=== PATIENT | male | born 1945 | race Asian ===

== ENCOUNTER 2019-05-31 19:30 | Inpatient (IN) | payer MEDICAID ==
[~2019-05-31] VITALS: Ht 167.6 cm; Wt 68.0 kg
[2019-05-31] MEDS ORDERED: IV NORMAL SALINE 1000 ML BAG IV ONE (20:00)
[2019-05-31 20:14] LABS: BASOPHILS # (AUTO) 0.1 K/uL (0.0-8.0); BASOPHILS % (AUTO) 0.9 % (0.0-2.0); EOSINOPHILS # (AUTO) 0.4 K/uL (0.0-0.7); EOSINOPHILS % (AUTO) 4.7 % (0.0-7.0); HEMATOCRIT 29.9 % (36.7-47.1); HEMOGLOBIN 10.2 g/dL (12.5-16.3); LYMPHOCYTES # (AUTO) 1.3 K/uL (20.0-40.0); LYMPHOCYTES % (AUTO) 15.5 % (20.5-51.5); MEAN CORPUSCULAR HEMOGLOBIN 26.8 uug (23.8-33.4); MEAN CORPUSCULAR HGB CONC 34 g/dL (32.5-36.3); MEAN CORPUSCULAR VOLUME 78.3 fL (73.0-96.2); MONOCYTES # (AUTO) 0.6 K/uL (2.0-10.0); MONOCYTES % (AUTO) 7.3 % (0.0-11.0); NEUTROPHILS # (AUTO) 6.2 K/uL (1.8-8.9); NEUTROPHILS % (AUTO) 71.6 % (38.5-71.5); PLATELET COUNT (AUTO) 279 K/uL (152-348); RED BLOOD CELL COUNT(AUTO) 3.82 MIL/uL (4.06-5.63); WHITE BLOOD COUNT (AUTO) 8.7 K/uL (3.6-10.2)
[2019-05-31 20:26] LABS: BILIRUBIN,DIRECT 0.2 mg/dL (0.0-0.2); BILIRUBIN,TOTAL 0.6 mg/dL (0.2-1.0); CREATININE 0.9 mg/dL (0.6-1.3); POTASSIUM 3.8 mmol/L (3.5-5.1); TOTAL PROTEIN, SERUM 7.3 g/dL (6.4-8.2)
[2019-05-31] MEDS ORDERED: AZITHROMYCIN IV 500 MG in IV DEXTROSE 5% 250 ML IV ONE (20:45)
[2019-05-31] MEDS ORDERED: CEFTRIAXONE 2 G in IV DEXTROSE 5% 100 ML IV ONE (20:45)
[2019-05-31] MEDS ORDERED: AZITHROMYCIN 500MG/ D5W 250ML IVPB **ER PYXIS ONLY IV ONE (20:46)
--- NOTE | 2019-05-31 21:01 | NUR ---
Dr. Joseph on panel call with Asael Archer DNP. Patient accepted for admission to [facility], diagnosis: pneumonia and hypertension.
[2019-05-31] MEDS ORDERED: LABETALOL HCL 100 MG/20 ML VIAL ONE (21:03)
[2019-05-31] MEDS ORDERED: LABETALOL HCL 100 MG/20 ML VIAL IV ONE (21:15)
[2019-05-31 21:25] LABS: *BILIRUBIN,URIN NEGATIVE (NEGATIVE); *BLOOD, URINE NEGATIVE (NEGATIVE); *CLARITY,URINE CLEAR (CLEAR); *COLOR,URINE YELLOW (YELLOW); *KETONES,URINE 1+ (NEGATIVE); *UROBILINOGEN,URINE 0.2 E.U./dl (NORMAL); LEUKOCYTE ESTERASE ,URINE NEGATIVE (NEGATIVE); NITRITE, URINE NEGATIVE (NEGATIVE); UGLUCOSE NEGATIVE (NEGATIVE)
[2019-05-31 21:33] LABS: RBC,URINE 0-3 /HPF (0-3); WBC,URINE NONE SEEN /HPF (0-3)
[2019-05-31] MEDS ORDERED: ONDANSETRON 4 MG/2 ML VIAL IV PRN (21:45)
[2019-05-31] MEDS ORDERED: ZOLPIDEM 5 MG TABLET PO PRN (21:45)
[2019-05-31] MEDS ORDERED: HYDROCODONE/APAP 5-325MG TABLET PO PRN (21:45)
[2019-05-31] MEDS ORDERED: Z GUARD REMEDY PASTE 57 GM TUBE TOP PRN (21:45)
--- NOTE | 2019-05-31 22:15 | NUR ---
Pt. admitted to TELE, under care of Dr. Archer Belongs List completed
[2019-05-31] MEDS: IV NS 1000 ML 1,000 ML IV PRN (22:52)
[2019-05-31 23:00] VITALS: BP 158/65
[2019-06-01] MEDS ORDERED: DEXTROSE 50% 50 ML DISP.SYRIN IV PRN (02:15)
[2019-06-01 05:00] VITALS: BP 156/65
--- NOTE | 2019-06-01 05:30 | NUR ---
Admitted Mr Hutchinson to room 306; comfortable on room air; SOB on exertion; pt has urinary urgency and would prefer to urinate standing up and use the urinal; diminished breath sounds; SR on tele; DR Phillips was called to give orders for HHN and accucheck; orders given; will endorse to next RN to follow up with home meds; needs attended; safety maintained. plan of care initiated; continue to monitor.
[2019-06-01 05:59] LABS: BASOPHILS % (AUTO) 0.5 % (0.0-2.0); EOSINOPHILS # (AUTO) 0.5 K/uL (0.0-0.7); HEMATOCRIT 29.4 % (36.7-47.1); HEMOGLOBIN 10.1 g/dL (12.5-16.3); LYMPHOCYTES # (AUTO) 0.9 K/uL (20.0-40.0); LYMPHOCYTES % (AUTO) 10.3 % (20.5-51.5); MEAN CORPUSCULAR HGB CONC 34 g/dL (32.5-36.3); MEAN CORPUSCULAR VOLUME 78.9 fL (73.0-96.2); MONOCYTES # (AUTO) 0.6 K/uL (2.0-10.0); MONOCYTES % (AUTO) 6.5 % (0.0-11.0); NEUTROPHILS # (AUTO) 6.6 K/uL (1.8-8.9); NEUTROPHILS % (AUTO) 76.7 % (38.5-71.5); PLATELET COUNT (AUTO) 248 K/uL (152-348); RED BLOOD CELL COUNT(AUTO) 3.72 MIL/uL (4.06-5.63); WHITE BLOOD COUNT (AUTO) 8.6 K/uL (3.6-10.2)
[2019-06-01 06:12] LABS: BILIRUBIN,TOTAL 0.6 mg/dL (0.2-1.0); CREATININE 0.7 mg/dL (0.6-1.3); MAGNESIUM 1.7 mg/dL (1.8-2.4); POTASSIUM 3.8 mmol/L (3.5-5.1); TOTAL PROTEIN, SERUM 6.7 g/dL (6.4-8.2)
[2019-06-01 06:15] LABS: THYROID STIMULATING HORMONE 0.627 mIU/mL (0.358-3.740)
[2019-06-01] MEDS: BLOOD SUGAR DIAGNOSTIC 1 EACH STRIP VI SCH ×4 (06:32→21:06)
[2019-06-01 08:07] VITALS: BP 191/86
--- NOTE | 2019-06-01 08:08 | NUR ---
received pt. resting in bed alert oriented x4. Pt. denies pain/ discomfort. Pt. denies sob/ difficulty breathing. IV in R forearm 20 gauge intact patent running prescribed fluids. Pt. is on tele monitor sinus rhythm. Upon checking vital signs BP elevated at 191/86 HR 93. Pt. is asymptomatic, pt. states he takes BP medications. Informed Hospitalist Gianni of elevated BP and home meds that need to be reconciled. Safety measures in place. call light within reach. will continue to monitor pt.
[2019-06-01] MEDS: INSULIN REGULAR, HUMAN 300 UNIT/3 ML VIAL SQ PRN ×3 (08:51→20:57)
[2019-06-01] MEDS ORDERED: AMLODIPINE 5 MG TABLET PO SCH (09:00)
[2019-06-01] MEDS ORDERED: LOSARTAN POTASSIUM 25 MG TABLET PO SCH (09:00)
[2019-06-01] MEDS: ASPIRIN 81 MG TAB.CHEW PO SCH (09:32)
[2019-06-01] MEDS: PANTOPRAZOLE SODIUM 40 MG TABLET.DR PO SCH (09:33)
[2019-06-01] MEDS: FLUTICASONE/VILANTEROL 1 EACH BLST.W.DEV IH SCH (10:42)
[2019-06-01] MEDS: MAGNESIUM SULFATE/D5W 100 ML IV SCH ×2 (10:43→12:06)
[2019-06-01] MEDS ORDERED: METOPROLOL TARTRATE 50 MG TABLET PO SCH (11:00)
[2019-06-01 12:09] VITALS: BP 160/65
[2019-06-01] MEDS ORDERED: DILTIAZEM HCL 30 MG TABLET PO SCH (13:00)
[2019-06-01 16:58] VITALS: BP 160/69
[2019-06-01] MEDS: AMLODIPINE 5 MG TABLET PO SCH (17:26)
--- NOTE | 2019-06-01 18:04 | NUR ---
Patient is resting comfortably in bed, A&Ox4. Pt is in room air and denies sob, no signs of respiratory distress. Pt denies any pain. Pt is on tele monitor, sinus rhythm. Last BP check was 160/69. BP medications has been taken. Total urine output was 950ml. Safety measures in place, bed in lowest position, bed alarm on, call light within reach. Will continue to monitor.
[2019-06-01 20:00] VITALS: BP_SYST 138; BP_SYST 150; BP_DIAS 60; BP_DIAS 78
--- NOTE | 2019-06-01 20:00 | NUR ---
awake,up in the bathroom to have a bowel movement. no bm noted.unable to have a bowel movement . prune juice and tea given plus milk of magnesia.coughing non productive cough,sob upon movement. vital signs stable.. up and about in the commode.verbalized very weak.
[2019-06-01] MEDS: CEFTRIAXONE 1 G in IV DEXTROSE 5% 50 ML IV SCH (20:11)
[2019-06-01] MEDS: MAGNESIUM HYDROXIDE 30 ML LIQUID UDC PO PRN (20:57)
[2019-06-01] MEDS: AZITHROMYCIN IV 250 MG in IV DEXTROSE 5% 250 ML IV SCH (22:20)
[2019-06-01] MEDS: IV NS 1000 ML 1,000 ML IV PRN (23:40)
[2019-06-02 00:26] VITALS: BP 148/72
[2019-06-02 04:48] VITALS: BP 164/79
--- NOTE | 2019-06-02 06:21 | NUR ---
up in the chair ,resting comfortably
[2019-06-02 06:24] LABS: BILIRUBIN,TOTAL 0.6 mg/dL (0.2-1.0); CREATININE 0.8 mg/dL (0.6-1.3); PHOSPHOROUS 2.8 mg/dL (2.5-4.9); POTASSIUM 3.7 mmol/L (3.5-5.1); TOTAL PROTEIN, SERUM 7.1 g/dL (6.4-8.2)
[2019-06-02 06:35] LABS: BASOPHILS % (AUTO) 0.5 % (0.0-2.0); EOSINOPHILS # (AUTO) 0.4 K/uL (0.0-0.7); EOSINOPHILS % (AUTO) 3.9 % (0.0-7.0); HEMATOCRIT 31.3 % (36.7-47.1); HEMOGLOBIN 10.6 g/dL (12.5-16.3); LYMPHOCYTES # (AUTO) 0.9 K/uL (20.0-40.0); LYMPHOCYTES % (AUTO) 9.7 % (20.5-51.5); MEAN CORPUSCULAR HEMOGLOBIN 26.5 uug (23.8-33.4); MEAN CORPUSCULAR HGB CONC 34 g/dL (32.5-36.3); MEAN CORPUSCULAR VOLUME 78.7 fL (73.0-96.2); MONOCYTES # (AUTO) 0.5 K/uL (2.0-10.0); NEUTROPHILS # (AUTO) 7.9 K/uL (1.8-8.9); NEUTROPHILS % (AUTO) 80.9 % (38.5-71.5); PLATELET COUNT (AUTO) 278 K/uL (152-348); RED BLOOD CELL COUNT(AUTO) 3.98 MIL/uL (4.06-5.63); WHITE BLOOD COUNT (AUTO) 9.7 K/uL (3.6-10.2)
[2019-06-02] MEDS: PANTOPRAZOLE SODIUM 40 MG TABLET.DR PO SCH (06:45)
[2019-06-02] MEDS: BLOOD SUGAR DIAGNOSTIC 1 EACH STRIP VI SCH ×4 (07:06→21:16)
[2019-06-02] MEDS: DILTIAZEM HCL CD 120 MG CAP.SR.24H PO SCH (07:08)
--- NOTE | 2019-06-02 08:00 | NUR ---
pt. resting in bed alert oriented x4. Pt. denies pain/ discomfort. Pt. denies sob/ difficulty breathing. IV in R forearm 20 gauge intact patent. Pt. is on tele monitor sinus rhythm. Safety measures in place. call light within reach. will continue to monitor pt.
[2019-06-02] MEDS: ASPIRIN 81 MG TAB.CHEW PO SCH (08:11)
[2019-06-02] MEDS: AMLODIPINE 5 MG TABLET PO SCH ×2 (08:12→17:30)
[2019-06-02] MEDS: FLUTICASONE/VILANTEROL 1 EACH BLST.W.DEV IH SCH (08:13)
[2019-06-02] MEDS: INSULIN REGULAR, HUMAN 300 UNIT/3 ML VIAL SQ PRN ×3 (08:15→21:23)
[2019-06-02] MEDS: LOSARTAN POTASSIUM 25 MG TABLET PO SCH ×2 (08:55→21:10)
[2019-06-02] MEDS ORDERED: LOSARTAN POTASSIUM 25 MG TABLET PO SCH ×2 (09:00)
[2019-06-02 12:00] VITALS: BP 149/65
[2019-06-02] MEDS: ALBUTEROL SULFATE 2.5 MG/3 ML NEBU NEB PRN (14:32)
[2019-06-02] MEDS: IPRATROPIUM BROMIDE 0.5 MG/2.5 ML NEBU NEB PRN (14:32)
[2019-06-02 16:00] VITALS: BP 145/65
[2019-06-02] MEDS: CEFTRIAXONE 1 G in IV DEXTROSE 5% 50 ML IV SCH (20:09)
[2019-06-02] MEDS: ACETAMINOPHEN 325 MG TABLET PO PRN (20:10)
[2019-06-02 21:07] VITALS: BP 150/63
[2019-06-02] MEDS: AZITHROMYCIN IV 250 MG in IV DEXTROSE 5% 250 ML IV SCH (21:20)
[2019-06-03 06:00] VITALS: BP 136/61
[2019-06-03 06:07] LABS: BASOPHILS % (AUTO) 0.5 % (0.0-2.0); EOSINOPHILS # (AUTO) 0.6 K/uL (0.0-0.7); HEMATOCRIT 30.3 % (36.7-47.1); HEMOGLOBIN 10.3 g/dL (12.5-16.3); LYMPHOCYTES # (AUTO) 1.1 K/uL (20.0-40.0); LYMPHOCYTES % (AUTO) 11.5 % (20.5-51.5); MEAN CORPUSCULAR HEMOGLOBIN 26.6 uug (23.8-33.4); MEAN CORPUSCULAR HGB CONC 34 g/dL (32.5-36.3); MEAN CORPUSCULAR VOLUME 77.8 fL (73.0-96.2); MONOCYTES # (AUTO) 0.6 K/uL (2.0-10.0); MONOCYTES % (AUTO) 6.1 % (0.0-11.0); NEUTROPHILS % (AUTO) 75.9 % (38.5-71.5); PLATELET COUNT (AUTO) 252 K/uL (152-348); RED BLOOD CELL COUNT(AUTO) 3.89 MIL/uL (4.06-5.63); WHITE BLOOD COUNT (AUTO) 9.2 K/uL (3.6-10.2)
[2019-06-03] MEDS: PANTOPRAZOLE SODIUM 40 MG TABLET.DR PO SCH (06:12)
[2019-06-03] MEDS: BLOOD SUGAR DIAGNOSTIC 1 EACH STRIP VI SCH ×4 (06:30→20:46)
[2019-06-03 06:31] LABS: THYROID STIMULATING HORMONE 0.719 mIU/mL (0.358-3.740)
[2019-06-03 06:42] LABS: BILIRUBIN,TOTAL 0.4 mg/dL (0.2-1.0); CREATININE 0.8 mg/dL (0.6-1.3); PHOSPHOROUS 3.6 mg/dL (2.5-4.9); POTASSIUM 3.8 mmol/L (3.5-5.1); TOTAL PROTEIN, SERUM 6.9 g/dL (6.4-8.2)
--- NOTE | 2019-06-03 07:45 | NUR ---
Received patient in bed, awake and verbally responsive. No signs of distress noted. No SOB. No complain at this time. 0600 Blood sugar is 148, will give 2 units insulin per sliding scale before breakfast. Kept clean and comfortable. kept the call light within easy reach. Will continue to monitor.
[2019-06-03] MEDS: INSULIN REGULAR, HUMAN 300 UNIT/3 ML VIAL SQ PRN ×2 (07:54→11:52)
[2019-06-03 08:00] VITALS: BP 141/53
[2019-06-03] MEDS: DILTIAZEM HCL CD 120 MG CAP.SR.24H PO SCH (08:28)
[2019-06-03] MEDS: ASPIRIN 81 MG TAB.CHEW PO SCH (08:28)
[2019-06-03] MEDS: AMLODIPINE 5 MG TABLET PO SCH ×2 (08:28→16:46)
[2019-06-03] MEDS: LOSARTAN POTASSIUM 25 MG TABLET PO SCH ×2 (08:28→21:13)
[2019-06-03] MEDS: FLUTICASONE/VILANTEROL 1 EACH BLST.W.DEV IH SCH (09:03)
--- NOTE | 2019-06-03 14:20 | NUR ---
Patient spoke with Dr. Noguera on the phone, asking if he wants to do any colonoscopy procedure, patient refused.
[2019-06-03 14:27] LABS: *OCCULT BLOOD STOOL NEGATIVE (NEGATIVE)
[2019-06-03 15:40] VITALS: BP 138/53
--- NOTE | 2019-06-03 18:30 | NUR ---
Patient in bed, awake, alert and verbally responsive. No signs of distress noted. No SON. Pain medication given as ordered for Right Chest Pain, Seen and examined by Dr. No with STAT EKG ordered. EKG resulted Normal Sinus Rhythm, Dr. No is aware. Last Blood Sugar is 122, No insulin given per sliding scale. All needs attended and met. kept clean and comfortable. Will endorse to Oncoming Nurse.
[2019-06-03] MEDS: CEFTRIAXONE 1 G in IV DEXTROSE 5% 50 ML IV SCH (20:29)
[2019-06-03 21:15] VITALS: BP 135/56
[2019-06-03] MEDS: AZITHROMYCIN IV 250 MG in IV DEXTROSE 5% 250 ML IV SCH (21:23)
[2019-06-04] VITALS: BP 128/63
[2019-06-04 05:40] VITALS: BP 132/65
[2019-06-04] MEDS: PANTOPRAZOLE SODIUM 40 MG TABLET.DR PO SCH (06:00)
[2019-06-04] MEDS: BLOOD SUGAR DIAGNOSTIC 1 EACH STRIP VI SCH ×4 (06:31→21:21)
[2019-06-04 07:41] LABS: BILIRUBIN,TOTAL 0.4 mg/dL (0.2-1.0); CREATININE 0.8 mg/dL (0.6-1.3); MAGNESIUM 1.6 mg/dL (1.8-2.4); PHOSPHOROUS 3.5 mg/dL (2.5-4.9); TOTAL PROTEIN, SERUM 6.7 g/dL (6.4-8.2)
[2019-06-04 08:09] LABS: *IMMUNOGLOBULIN G, SERUM 1105 mg/dL (603-1613); IMMUNOGLOBULIN A, SERUM 136 mg/dL (61-437); IMMUNOGLOBULIN M, SERUM 27 mg/dL (15-143)
[2019-06-04] MEDS: FLUTICASONE/VILANTEROL 1 EACH BLST.W.DEV IH SCH (08:40)
[2019-06-04] MEDS: ASPIRIN 81 MG TAB.CHEW PO SCH (08:41)
[2019-06-04] MEDS: INSULIN REGULAR, HUMAN 300 UNIT/3 ML VIAL SQ PRN ×3 (08:43→21:23)
[2019-06-04] MEDS: AMLODIPINE 5 MG TABLET PO SCH ×2 (08:43→17:08)
[2019-06-04] MEDS: LOSARTAN POTASSIUM 25 MG TABLET PO SCH ×2 (08:44→21:22)
[2019-06-04] MEDS: DILTIAZEM HCL CD 120 MG CAP.SR.24H PO SCH (08:44)
[2019-06-04] MEDS: MAGNESIUM SULFATE/D5W 100 ML IV SCH ×2 (10:14→11:12)
--- NOTE | 2019-06-04 11:30 | NUR ---
Spoke with patient in [facility]. PT is very well alert and oriented x4. Discussed code status with pt. Pt states that he doesnt want any tubes and to be intubated and put on the ventilator. Pt states that he wants to talk with his daughter first to let her know of his wants re code status. Pt states that his daughter wants him to be full code. ordered social service eval to clarify situation.
[2019-06-04 12:07] VITALS: BP 115/54
--- NOTE | 2019-06-04 12:30 | NUR ---
Received Report from radiologist Dr Bronson Cruz result of CT received.
--- NOTE | 2019-06-04 12:45 | NUR ---
Attempt to get hold of dr Arcehr by calling different floors to give result will place a call if no response.
--- NOTE | 2019-06-04 13:18 | NUR ---
Called exchange left message awaiting call back.
--- NOTE | 2019-06-04 13:45 | NUR ---
No call back from Dr hernandez placed a call to DR HOPE who ordered the CT head result given to DR hope new order received for MRI w/wo contrast of the brain.
[2019-06-04] MEDS: SOD FERRIC GLUC COMPLX/SUCROSE 125 MG in IV NORMAL SALINE 100 ML IV SCH (14:38)
--- NOTE | 2019-06-04 15:45 | NUR ---
Follow up called made to radiology department spoke with IRMA about any f/u on the stat MRI ordered. IRMA will call MRI department for follow up.
[2019-06-04 15:52] VITALS: BP 143/62
[2019-06-04 16:00] VITALS: BP 143/62
--- NOTE | 2019-06-04 16:44 | NUR ---
TEXTED DR. PATTON FOR MRI APPROVAL.
--- NOTE | 2019-06-04 18:30 | NUR ---
Pt sent for MRI test and picked up by NIKO rojas. Pt has no sob.
[2019-06-04] MEDS: CEFTRIAXONE 1 G in IV DEXTROSE 5% 50 ML IV SCH (20:00)
--- NOTE | 2019-06-04 20:55 | NUR ---
PT ARRIVED FROM [facility]. PT IN NO ACUTE DISTRESS. VITAL SIGNS WITHIN NORMAL LIMIT.. PT WANTS TO EAT ALREADY . SAFETY AND COMFORT PROVIDED. [facility] [address] BROUGHT THE PT TO HIS ROOM. WILL CONTINUE TO MONITOR.
[2019-06-04 21:33] VITALS: BP 118/58
[2019-06-04] MEDS: AZITHROMYCIN IV 250 MG in IV DEXTROSE 5% 250 ML IV SCH (22:00)
--- NOTE | 2019-06-04 22:44 | NUR ---
Called [facility] for dr radiation oncology therapist to report the mri result. waiting for call back. Sent message regarding the mri result to dr boss. Pt in no acute distress.
[2019-06-04] MEDS ORDERED: AZITHROMYCIN 500 MG VIAL IV ONE (23:00)
--- NOTE | 2019-06-04 23:35 | NUR ---
Called [facility] for dr pinion sorter for the mri result. Waiting for call back.
[2019-06-05] MEDS ORDERED: DEXAMETHASONE SOD PHOSPHATE 4 MG INJ IV ONE (00:45)
[2019-06-05] MEDS: levETIRAcetam 500 MG TABLET PO SCH ×3 (01:27→22:02)
[2019-06-05 01:37] VITALS: BP 128/70
--- NOTE | 2019-06-05 01:46 | NUR ---
0027h Dr. Kaushik Phillips called and ordered Decadron 10 mg and Keppra 500 mg tablet. Pt in no acute distress. Safety and comfort provided. will continue to monitor.
[2019-06-05 05:00] VITALS: BP 130/52
--- NOTE | 2019-06-05 06:00 | NUR ---
PT IN NO ACUTE DISTRESS . PRESCRIBED MEDICATION GIVEN AND PT TOLERATED IT WELL. SAFETY AND COMFORT PROVIDED. WILL ENDORSE TO INCOMING NURSE FOR CONTINUITY OF CARE.
[2019-06-05] MEDS: PANTOPRAZOLE SODIUM 40 MG TABLET.DR PO SCH (06:09)
[2019-06-05 06:27] LABS: BASOPHILS % (AUTO) 0.1 % (0.0-2.0); EOSINOPHILS % (AUTO) 0.1 % (0.0-7.0); LYMPHOCYTES # (AUTO) 0.4 K/uL (20.0-40.0); MEAN CORPUSCULAR HEMOGLOBIN 26.1 uug (23.8-33.4); MONOCYTES # (AUTO) 0.1 K/uL (2.0-10.0); NEUTROPHILS % (AUTO) 95.8 % (38.5-71.5)
[2019-06-05] MEDS: BLOOD SUGAR DIAGNOSTIC 1 EACH STRIP VI SCH ×4 (06:33→22:01)
[2019-06-05 06:38] LABS: CREATININE 0.9 mg/dL (0.6-1.3); MAGNESIUM 2.2 mg/dL (1.8-2.4); PHOSPHOROUS 3.8 mg/dL (2.5-4.9); POTASSIUM 4.4 mmol/L (3.5-5.1)
[2019-06-05 06:41] LABS: HEMATOCRIT 29.3 % (36.7-47.1); HEMOGLOBIN 9.8 g/dL (12.5-16.3); LYMPHOCYTES % (AUTO) 3.1 % (20.5-51.5); MEAN CORPUSCULAR HGB CONC 34 g/dL (32.5-36.3); MONOCYTES % (AUTO) 0.9 % (0.0-11.0); NEUTROPHILS # (AUTO) 12.8 K/uL (1.8-8.9); PLATELET COUNT (AUTO) 237 K/uL (152-348); RED BLOOD CELL COUNT(AUTO) 3.75 MIL/uL (4.06-5.63); WHITE BLOOD COUNT (AUTO) 13.3 K/uL (3.6-10.2)
[2019-06-05 08:00] VITALS: BP 120/64
[2019-06-05] MEDS: FLUTICASONE/VILANTEROL 1 EACH BLST.W.DEV IH SCH (08:19)
[2019-06-05] MEDS: DILTIAZEM HCL CD 120 MG CAP.SR.24H PO SCH (08:21)
[2019-06-05] MEDS: LOSARTAN POTASSIUM 25 MG TABLET PO SCH ×2 (08:22→22:02)
[2019-06-05] MEDS: AMLODIPINE 5 MG TABLET PO SCH ×2 (08:23→18:51)
[2019-06-05] MEDS: DEXAMETHASONE SOD PHOSPHATE 4 MG INJ IV SCH ×2 (08:24→22:01)
[2019-06-05] MEDS: INSULIN REGULAR, HUMAN 300 UNIT/3 ML VIAL SQ PRN ×4 (08:28→22:17)
[2019-06-05 12:00] VITALS: BP 113/53
--- NOTE | 2019-06-05 13:34 | NUR ---
Cellular Plastics Cutter Consultation: 12:00pm: SW met with this patient today, who was in his bed, awake, alert, receptive to meeting with this SW. Patient is a 73 year old male, who was brought in to this hospital on 05/31/19 by his granddaughter, for SOB and weakness. Patient's medical history includes COPD, SOB, HTN, DM, cancer, and per MD notes dated 06/01/19, a recent finding of left parietal hemorrhage with surrounding vasogenic edema. Patient is oriented x 3, knew his name, knew the date and year, knew he was in the hospital for weakness. Patient lives in [place] with his daughter Zaina Chambers [phone], and 3 grandchildren. Patient states that prior to this hospitalization, patient was ambulatory and able to tend to basic ADL's in the house, and used a FWW when ambulating outdoors. Patient states his family assisted him with IADL's. Patient reports being a smoker, however states that he quit over 1 year ago. SW explored patient's emotional well-being and administered the PHQ-9. Patient expressed feeling sad at times due to missing his children in the [facility], and that he sometimes does not have the appetite to eat much because of his medical conditions. However, patient reported that he has been feeling like this for a while, and that he has not noticed any sudden and unexpected changes in his mood over the last few weeks. SW allowed patient to express his feelings and provided supportive counseling. SW screened for SI, and patient denied past or current SI. Discharge plans discussed, and patient expressed wanting to return home when possible. SW explained to the patient that case management would be assisting him with discharge planning when the doctor feels it is medically appropriate for discharge, and patient expressed understanding. No further SS interventions needed at this time, however SW will continue to be available to the patient, as needed.
[2019-06-05 16:00] VITALS: BP 110/54
[2019-06-05] MEDS: SOD FERRIC GLUC COMPLX/SUCROSE 125 MG in IV NORMAL SALINE 100 ML IV SCH (16:21)
--- NOTE | 2019-06-05 19:16 | NUR ---
PATIENT CALM AND COMFORTABLE THROUGH OUT SHIFT WITH NO SIGNS OF DISTRESS; PATIENT MEDICATION COMPLIANT; PATIENT WITH STABLE VITAL SIGNS THROUGH OUT SHIFT. REPORT GIVEN TO ONCOMING NURSE.
[2019-06-05 20:00] VITALS: BP 118/50
[2019-06-05] MEDS: CEFTRIAXONE 1 G in IV DEXTROSE 5% 50 ML IV SCH (20:16)
[2019-06-05] MEDS: AZITHROMYCIN IV 250 MG in IV DEXTROSE 5% 250 ML IV SCH (22:04)
[2019-06-06 00:53] VITALS: BP 119/69
[2019-06-06 04:15] LABS: A/G RATIO 1.1 (0.7-1.7); ALBUMIN 3.2 g/dL (2.9-4.4); ALPHA-1-GLOBULIN 0.3 g/dL (0.0-0.4); ALPHA-2-GLOBULIN 0.7 g/dL (0.4-1.0); BETA GLOBULIN 1.1 g/dL (0.7-1.3); GAMMA GLOBULIN 0.9 g/dL (0.4-1.8); GLOBULIN, TOTAL 2.9 g/dL (2.2-3.9); M-SPIKE Not Observed g/dL (Not Observed)
[2019-06-06 05:09] VITALS: BP 116/53
[2019-06-06] MEDS: BLOOD SUGAR DIAGNOSTIC 1 EACH STRIP VI SCH ×5 (06:10→20:38)
[2019-06-06] MEDS: PANTOPRAZOLE SODIUM 40 MG TABLET.DR PO SCH (06:10)
[2019-06-06 06:29] LABS: MAGNESIUM 2.2 mg/dL (1.8-2.4); PHOSPHOROUS 3.8 mg/dL (2.5-4.9); POTASSIUM 4.2 mmol/L (3.5-5.1); URIC ACID 2.8 mg/dL (3.5-7.2)
--- NOTE | 2019-06-06 07:01 | NUR ---
PATIENT ALERT ORIENTED, NO SOB NO CHEST PAIN, TELE MONITOR SINUS RHYTHM. PATIENT HAD 2BM TODAY. PATIENT KEPT CLEAN AND DRY, VOIDING FREELY, V/S STABLE. CONT TO MONITOR.
[2019-06-06 08:39] VITALS: BP 124/50
[2019-06-06] MEDS: DILTIAZEM HCL CD 120 MG CAP.SR.24H PO SCH (10:18)
[2019-06-06] MEDS: LOSARTAN POTASSIUM 25 MG TABLET PO SCH ×3 (10:19→20:41)
[2019-06-06] MEDS: levETIRAcetam 500 MG TABLET PO SCH ×3 (10:19→20:42)
[2019-06-06] MEDS: AMLODIPINE 5 MG TABLET PO SCH ×2 (10:20→17:00)
[2019-06-06] MEDS: DEXAMETHASONE SOD PHOSPHATE 4 MG INJ IV SCH ×3 (10:20→20:42)
[2019-06-06] MEDS: FLUTICASONE/VILANTEROL 1 EACH BLST.W.DEV IH SCH (10:21)
[2019-06-06] MEDS: INSULIN REGULAR, HUMAN 300 UNIT/3 ML VIAL SQ PRN ×3 (11:58→20:41)
--- NOTE | 2019-06-06 12:45 | NUR ---
SPOKEN TO DR MURILLO CONCERNING PT'S BLOOD PRESSURE MEDICATION PARAMETERS. ORDERED TO HOLD IT IF SBP IS BELOW 100.
[2019-06-06 13:21] VITALS: BP 122/53
[2019-06-06] MEDS: SOD FERRIC GLUC COMPLX/SUCROSE 125 MG in IV NORMAL SALINE 100 ML IV SCH (14:20)
[2019-06-06 16:00] VITALS: BP 126/49
--- NOTE | 2019-06-06 17:00 | NUR ---
DR BRUCE ORDERED LUNG MASS BIOPSY TO BE DONE IN THE MORNING. PT IS REFUSING TO SIGN. CALLED AND SPOKE WITH KENDY THAT SHE CAN TALK TO HER FATHER.
--- NOTE | 2019-06-06 18:30 | NUR ---
SEEN AND EXAMINED BY DR MURILLO. WILL TALK TO DR MURILLO REGARDING THE LUNG BIOPSY.
[2019-06-06 20:00] VITALS: BP 115/45
[2019-06-06] MEDS: CEFTRIAXONE 1 G in IV DEXTROSE 5% 50 ML IV SCH ×2 (20:15→20:38)
[2019-06-06] MEDS: AZITHROMYCIN IV 250 MG in IV DEXTROSE 5% 250 ML IV SCH (21:16)
[2019-06-07] VITALS: BP 119/47
[2019-06-07 04:00] VITALS: BP 131/51
--- NOTE | 2019-06-07 04:21 | NUR ---
PATIENT SLEEPING INTERMITTENTLY THROUGH THE SHIFT. NSR ON TELE MONITOR. V/S STABLE. NO SIGNS OF ACUTE DISTRESS. DENIES SOB AND CHEST PAIN. WILL CONTINUE TO MONITOR.
[2019-06-07 05:35] LABS: BASOPHILS % (AUTO) 0.1 % (0.0-2.0); HEMATOCRIT 29.4 % (36.7-47.1); HEMOGLOBIN 9.8 g/dL (12.5-16.3); LYMPHOCYTES # (AUTO) 0.5 K/uL (20.0-40.0); MEAN CORPUSCULAR HGB CONC 33 g/dL (32.5-36.3); MEAN CORPUSCULAR VOLUME 78.3 fL (73.0-96.2); MONOCYTES # (AUTO) 0.4 K/uL (2.0-10.0); MONOCYTES % (AUTO) 2.2 % (0.0-11.0); NEUTROPHILS # (AUTO) 16.7 K/uL (1.8-8.9); NEUTROPHILS % (AUTO) 94.7 % (38.5-71.5); PLATELET COUNT (AUTO) 272 K/uL (152-348); RED BLOOD CELL COUNT(AUTO) 3.75 MIL/uL (4.06-5.63); WHITE BLOOD COUNT (AUTO) 17.6 K/uL (3.6-10.2)
[2019-06-07 06:06] LABS: BILIRUBIN,TOTAL 0.4 mg/dL (0.2-1.0); CREATININE 0.8 mg/dL (0.6-1.3); POTASSIUM 4.6 mmol/L (3.5-5.1); TOTAL PROTEIN, SERUM 6.7 g/dL (6.4-8.2)
[2019-06-07] MEDS: PANTOPRAZOLE SODIUM 40 MG TABLET.DR PO SCH (06:10)
[2019-06-07] MEDS: BLOOD SUGAR DIAGNOSTIC 1 EACH STRIP VI SCH ×4 (07:31→21:25)
[2019-06-07 08:00] VITALS: BP 120/51
--- NOTE | 2019-06-07 08:00 | NUR ---
Patient's 6AM BS was 224, insulin not given cause pt is NPO for possible lung biopsy today.
[2019-06-07] MEDS: LOSARTAN POTASSIUM 25 MG TABLET PO SCH ×2 (09:00→21:02)
[2019-06-07] MEDS: AMLODIPINE 5 MG TABLET PO SCH ×2 (09:00→16:46)
[2019-06-07] MEDS: DILTIAZEM HCL CD 120 MG CAP.SR.24H PO SCH (09:00)
[2019-06-07] MEDS: FLUTICASONE/VILANTEROL 1 EACH BLST.W.DEV IH SCH (09:51)
[2019-06-07] MEDS: levETIRAcetam 500 MG TABLET PO SCH ×2 (09:51→21:02)
[2019-06-07] MEDS: DEXAMETHASONE SOD PHOSPHATE 4 MG INJ IV SCH ×2 (09:51→21:02)
--- NOTE | 2019-06-07 11:45 | NUR ---
BS 211, insulin not given due to NPO status.
[2019-06-07 12:00] VITALS: BP 120/46
--- NOTE | 2019-06-07 12:17 | NUR ---
talked to Robert in radiology regarding pt consenting for right lung mass biopsy. He will call back for schedule. Dr. Vazquez and Dr. Cristobal made aware of patient's decision.
--- NOTE | 2019-06-07 14:02 | NUR ---
SS CONSULTATION requested by Monorail Charger Operator Johanna Saavedra for clarification on patient's healthcare wishes. 1:20pm: SW met with this patient, who was awake and in his hospital bed having lunch. Patient welcomed SW into his hospital room and was receptive to speaking with this SW. SW assessed patient's level of orientation, and patient was oriented x 3. SW generated a discussion about patient's healthcare wishes, and provided patient with education on the different intensities of care that people may choose for their health care needs. Patient was engaged in the conversation, although on a couple of occasions SW had to repeat and re-word the information provided in order for the patient to express understanding. SW clarified patient's code status, which is currently a DNR, but patient expressed being unsure of this status. SW asked the patient "if your heart stops, do you want the nurses to re-start it" and patient's response was "um..maybe not"? SW asked the same question to the patient x 3 throughout conversation with the patient, and all 3 times patient's response was "um...maybe not"? Patient informed this SW that he will be having a lung biopsy tomorrow, and that he is in agreement with having this procedure. SW thanked patient for his time, and also asked the patient if patient would be ok with SW contacting his daughter Zaina Chambers to discuss and coordinate patient's care need. Patient expressed agreement and provided verbal authorization for SW to contact patient's daughter. SW then spoke with Monorail Charger Operator Johanna Saavedra and informed her of above conversation SW had with the patient, and SW's concern that although patient is oriented, he may need further information/education pertaining to healthcare wishes in order for the patient to make an informed decision on his code status. Johanna expressed agreement, and stated that she would speak with the patient's physician regarding this matter, and that Johanna and this SW would also contact the patient's daughter tomorrow to speak with her.
[2019-06-07] MEDS: INSULIN REGULAR, HUMAN 300 UNIT/3 ML VIAL SQ PRN ×3 (14:17→21:32)
[2019-06-07] MEDS: SOD FERRIC GLUC COMPLX/SUCROSE 125 MG in IV NORMAL SALINE 100 ML IV SCH (14:18)
[2019-06-07] MEDS: GLUCERNA SHAKE VANILLA 237 ML CAN PO SCH (18:05)
--- NOTE | 2019-06-07 19:00 | NUR ---
PATIENT ALERT ORIENTED, NO SOB NO CHEST PAIN, TELE MONITOR SINUS RHYTHM, KEPT CLEAN AND DRY, USE URINAL FOR BLADDER ELIMINATIONS. CONT TO MONITOR.
[2019-06-07 20:00] VITALS: BP 130/56
[2019-06-07] MEDS: CEFTRIAXONE 1 G in IV DEXTROSE 5% 50 ML IV SCH (21:01)
--- NOTE | 2019-06-07 22:00 | NUR ---
DR BRUCE CALLED AND ORDER PATIENT NPO AFTER MIDNIGHT. NOTIFY THE PATIENT.
[2019-06-07] MEDS: AZITHROMYCIN IV 250 MG in IV DEXTROSE 5% 250 ML IV SCH (22:06)
[2019-06-07] MEDS: ACETAMINOPHEN 325 MG TABLET PO PRN (23:07)
[2019-06-08] VITALS (7 sets, daily range): BP systolic 118–134; BP diastolic 50–83
[2019-06-08] MEDS: PANTOPRAZOLE SODIUM 40 MG TABLET.DR PO SCH (06:14)
[2019-06-08] MEDS: BLOOD SUGAR DIAGNOSTIC 1 EACH STRIP VI SCH ×4 (06:22→21:18)
--- NOTE | 2019-06-08 06:47 | NUR ---
PATIENT CONTINUE ON NPO, ALERT ORIENTED, NO SOB NO CHEST PAIN, TELE MONITOR SINUS RHYTHM, VOIDING FREELY, V/S STABLE.
[2019-06-08] MEDS: IPRATROPIUM BROMIDE 0.5 MG/2.5 ML NEBU NEB PRN (07:30)
[2019-06-08] MEDS: ALBUTEROL SULFATE 2.5 MG/3 ML NEBU NEB PRN (07:30)
--- NOTE | 2019-06-08 07:30 | NUR ---
Orienting with MARIA DE JESUS Jackson today. All charting/documentation and assessment notes reviewed by MARIA DE JESUS Jackson.
[2019-06-08 07:35] LABS: POTASSIUM 5.3 mmol/L (3.5-5.1); URIC ACID 2.3 mg/dL (3.5-7.2)
[2019-06-08] MEDS ORDERED: LIDOCAINE HCL 1% 20 ML VIAL ONE (07:58)
[2019-06-08] MEDS: GLUCERNA SHAKE VANILLA 237 ML CAN PO SCH ×2 (08:00→17:17)
--- NOTE | 2019-06-08 08:10 | NUR ---
Patient brought down to surgery with radiologist. Full telephone SBAR Report given to MARIA DE JESUS Savage from Surgery. Patient is stable and NAD upon leaving the floor.
[2019-06-08] MEDS ORDERED: MIDAZOLAM HCL 2 MG/2 ML VIAL IV PRN (08:30)
[2019-06-08] MEDS ORDERED: FENTANYL CITRATE 100 MCG/2 ML AMPUL IV PRN (08:30)
[2019-06-08] MEDS ORDERED: FLUMAZENIL 0.5 MG/5 ML VIAL IVP PRN (08:45)
[2019-06-08] MEDS ORDERED: NALOXONE HCL 0.4 MG/ML AMPUL IV PRN (08:45)
[2019-06-08 08:57] LABS: THYROID STIMULATING HORMONE 0.125 mIU/mL (0.358-3.740)
[2019-06-08] MEDS ORDERED: SODIUM POLYSTYRENE SULFONATE 15 G/60 ML LIQUID UDC PO ONE (09:30)
--- NOTE | 2019-06-08 09:33 | NUR ---
Pt received from surgery s/p right lung biopsy. VSS wnl. Pt stable and nad noted upon returning to the floor. Full SBAR report received by surgery RN.
[2019-06-08] MEDS: DEXAMETHASONE SOD PHOSPHATE 4 MG INJ IV SCH ×2 (09:51→21:19)
[2019-06-08] MEDS: DILTIAZEM HCL CD 120 MG CAP.SR.24H PO SCH (09:51)
[2019-06-08] MEDS: levETIRAcetam 500 MG TABLET PO SCH ×2 (09:51→21:19)
[2019-06-08] MEDS: LOSARTAN POTASSIUM 25 MG TABLET PO SCH ×2 (09:52→21:19)
[2019-06-08] MEDS: AMLODIPINE 5 MG TABLET PO SCH ×2 (09:52→16:40)
[2019-06-08] MEDS: FLUTICASONE/VILANTEROL 1 EACH BLST.W.DEV IH SCH (09:53)
[2019-06-08] MEDS: INSULIN REGULAR, HUMAN 300 UNIT/3 ML VIAL SQ PRN ×3 (11:29→21:37)
[2019-06-08] MEDS: MAGNESIUM HYDROXIDE 30 ML LIQUID UDC PO PRN (11:46)
[2019-06-08] MEDS: SOD FERRIC GLUC COMPLX/SUCROSE 125 MG in IV NORMAL SALINE 100 ML IV SCH (13:21)
--- NOTE | 2019-06-08 14:32 | NUR ---
ROSARIO spoke with Fraud Analyst Johanna today, along with LIZ Ford, and patient's physician Dr. Vazquez. It was agreed to schedule a phone conference with the family to further discuss patient's care and healthcare choices. Johanna spoke with patient's daughter Zaina [phone] and schedule a phone meeting for tomorrow 06/[address] Vazquez informed of date/time.
--- NOTE | 2019-06-08 18:27 | NUR ---
Patient resting in bed. Patient denies SOB or respiratory distress. Patient denies pain. Vital signs stable. Attended to his needs. Safety measures in place. Bed in lowest position, bed alarm on. Call lights within reach. Will endorse to the oncoming RN for the continuity of care.
[2019-06-08] MEDS ORDERED: INSULIN GLARGINE,HUM 300 UNITS/3 ML CARTRIDGE SQ SCH (21:00)
[2019-06-08] MEDS: CEFTRIAXONE 1 G in IV DEXTROSE 5% 50 ML IV SCH (21:01)
[2019-06-08] MEDS: AZITHROMYCIN IV 250 MG in IV DEXTROSE 5% 250 ML IV SCH (22:14)
[2019-06-09 00:25] VITALS: BP 133/51
[2019-06-09 04:58] VITALS: BP 104/56
[2019-06-09 05:05] VITALS: BP 131/50
[2019-06-09] MEDS: PANTOPRAZOLE SODIUM 40 MG TABLET.DR PO SCH (06:05)
--- NOTE | 2019-06-09 06:20 | NUR ---
Patient slept well. No SOB noted. No complaints of pain. SR on Tele monitor. All needs attended. Will endorse accordingly
[2019-06-09 06:28] LABS: BASOPHILS % (AUTO) 0.1 % (0.0-2.0); HEMATOCRIT 31.1 % (36.7-47.1); HEMOGLOBIN 10.3 g/dL (12.5-16.3); LYMPHOCYTES # (AUTO) 0.6 K/uL (20.0-40.0); LYMPHOCYTES % (AUTO) 4.6 % (20.5-51.5); MEAN CORPUSCULAR HEMOGLOBIN 26.2 uug (23.8-33.4); MEAN CORPUSCULAR HGB CONC 33 g/dL (32.5-36.3); MEAN CORPUSCULAR VOLUME 79.1 fL (73.0-96.2); MONOCYTES # (AUTO) 0.6 K/uL (2.0-10.0); MONOCYTES % (AUTO) 4.3 % (0.0-11.0); NEUTROPHILS # (AUTO) 12.5 K/uL (1.8-8.9); PLATELET COUNT (AUTO) 321 K/uL (152-348); RED BLOOD CELL COUNT(AUTO) 3.94 MIL/uL (4.06-5.63); WHITE BLOOD COUNT (AUTO) 13.7 K/uL (3.6-10.2)
[2019-06-09] MEDS: BLOOD SUGAR DIAGNOSTIC 1 EACH STRIP VI SCH ×3 (06:37→11:44)
[2019-06-09 06:38] LABS: BILIRUBIN,TOTAL 0.3 mg/dL (0.2-1.0); MAGNESIUM 2.1 mg/dL (1.8-2.4); PHOSPHOROUS 3.7 mg/dL (2.5-4.9); POTASSIUM 4.5 mmol/L (3.5-5.1); TOTAL PROTEIN, SERUM 6.3 g/dL (6.4-8.2)
[2019-06-09] MEDS: INSULIN REGULAR, HUMAN 300 UNIT/3 ML VIAL SQ PRN ×2 (08:03→11:48)
[2019-06-09] MEDS: FLUTICASONE/VILANTEROL 1 EACH BLST.W.DEV IH SCH (08:05)
[2019-06-09] MEDS: DILTIAZEM HCL CD 120 MG CAP.SR.24H PO SCH (08:06)
[2019-06-09] MEDS: AMLODIPINE 5 MG TABLET PO SCH (08:06)
[2019-06-09] MEDS: DEXAMETHASONE SOD PHOSPHATE 4 MG INJ IV SCH (08:06)
[2019-06-09] MEDS: levETIRAcetam 500 MG TABLET PO SCH (08:06)
[2019-06-09] MEDS: LOSARTAN POTASSIUM 25 MG TABLET PO SCH (08:07)
[2019-06-09] MEDS: GLUCERNA SHAKE VANILLA 237 ML CAN PO SCH (08:42)
--- NOTE | 2019-06-09 11:01 | NUR ---
10:05am: Phone conference held today with patient's daughter Zaina Garcia [phone] and granddaughter Jesse Otero [phone] (granddaughter was present in the room during the meeting). Present at this meeting were this ROSARIO Griffin, Aviation Maintenance Technician Johanna Reeves, and patient's physicians Dr. George Hunter. Dr. Vazquez reviewed patient's medical condition, and reported that some tests results were still pending. Patient's ability to make his own healthcare decisions were discussed, and patient's granddaughter and daughter both expressed agreement that patient is currently oriented enough to understand and make his own decisions, and they would like to support him on his choices. The importance of providing patient with the necessary information about his medical condition and options for treatment were discussed, which would allow patient to make an informed decision, and patient's family expressed understanding and agreement. Patient's family asked about becoming POA for the patient, and ROSARIO provided information on the process of how patient can complete a healthcare directive and assign agents as decision makers. ROSARIO also provided patient's granddaughter Jesse with a healthcare directive form and reviewed the form with her, explaining how to complete the form. Jesse expressed understanding. Patient's code status decision of DNR was discussed and then confirmed afterwards with the patient. Patient's current code status will be DNR. Family expressed concern about not being able to get information from nursing staff when requesting updates on patient's condition. ROSARIO suggested that verbal consent will be obtained from patient verifying who patient wants to allow his information to be released to, and then patient will complete and sign an Authorization for use or disclosure of health information form, identifying the individual(s) that he has consented to release information to. Patient's daughter and granddaughter expressed agreement. Aviation Maintenance Technician Johanna to follow-up with patient in order to obtain this authorization. Patient's family expressed appreciation for the information provided and discussed. Patient's family expressed agreement with all that was discussed and with patient's ongoing treatment plan.
[2019-06-09 11:45] VITALS: BP 134/44
[2019-06-09] MEDS: SOD FERRIC GLUC COMPLX/SUCROSE 125 MG in IV NORMAL SALINE 100 ML IV SCH (14:16)
--- NOTE | 2019-06-09 14:58 | NUR ---
PATIENT DISCHARGED IN STABLE CONDITION WITH NO SIGNS OF DISTRESS; PATIENT WILL BE ADMITTED TO ARU FOR REHABILITATION SERVICES ; PATIENT WITH STABLE VITAL SIGNS. PATIENT AT BASELINE MENTAL STATUS.
[2019-06-09 16:00] VITALS: BP 130/50
[2019-06-09] MEDS ORDERED: INSULIN GLARGINE,HUM 300 UNITS/3 ML CARTRIDGE SQ SCH (21:00)
== END 2019-06-09 15:05 | DRG 710 ==
LOC: ER 19:33 → TELE3 22:06
PROVIDERS: ADMIT Hospitalist; ATTEND Internal Medicine
PROC: 0WB83ZX Excision of Chest Wall, Percutaneous Approach, Diagnostic (ICD-10-PCS; principal; 2019-06-08)
PROC: 0BDC4ZX Extraction of Right Upper Lung Lobe, Percutaneous Endoscopic Approach, Diagnostic (ICD-10-PCS; principal; 2019-06-08)
DX: A41.9 Sepsis, unspecified organism (principal); I61.8 Other nontraumatic intracerebral hemorrhage; G93.6 Cerebral edema; E44.0 Moderate protein-calorie malnutrition; C78.01 Secondary malignant neoplasm of right lung; G92 Toxic encephalopathy; E22.2 Syndrome of inappropriate secretion of antidiuretic hormone; J18.1 Lobar pneumonia, unspecified organism; E83.42 Hypomagnesemia; C79.31 Secondary malignant neoplasm of brain; R65.20 Severe sepsis without septic shock; J44.0 Chronic obstructive pulmonary disease with (acute) lower respiratory infection; Z87.891 Personal history of nicotine dependence; I16.0 Hypertensive urgency; Z85.6 Personal history of leukemia; Z92.21 Personal history of antineoplastic chemotherapy; G83.21 Monoplegia of upper limb affecting right dominant side; C79.89 Secondary malignant neoplasm of other specified sites; D68.69 Other thrombophilia; I11.0 Hypertensive heart disease with heart failure; I50.32 Chronic diastolic (congestive) heart failure; I48.91 Unspecified atrial fibrillation; Z85.038 Personal history of other malignant neoplasm of large intestine; Z90.49 Acquired absence of other specified parts of digestive tract; I25.10 Atherosclerotic heart disease of native coronary artery without angina pectoris; K43.9 Ventral hernia without obstruction or gangrene; Z68.24 Body mass index [BMI] 24.0-24.9, adult; E88.09 Other disorders of plasma-protein metabolism, not elsewhere classified; G31.84 Mild cognitive impairment of uncertain or unknown etiology; D50.9 Iron deficiency anemia, unspecified; E11.9 Type 2 diabetes mellitus without complications; Z79.84 Long term (current) use of oral hypoglycemic drugs; R22.2 Localized swelling, mass and lump, trunk; K62.89 Other specified diseases of anus and rectum; Z66 Do not resuscitate; E87.5 Hyperkalemia; J98.11 Atelectasis
CPT/HCPCS: 36415; 70030-TC; 70450; 70553; 71045; 71250; 82378; 82784; 83550; 83605; 83690; 83735; 84100; 84155; 84165; 84300; 84443; 84550; 85025; 85610; 85730; 86334; 86403; 87040; 87070; 87086; 87400; 93005; 93307; 94640; 94664; A4663; G0378; J0456; J0696; J1100; J1815; J2405; J2916; J3475; J3490; J3590; J7030; J7050; J7060

== ENCOUNTER 2019-06-09 12:26 | Inpatient (IN) | payer MEDICAID ==
[~2019-06-09] VITALS: Ht 167.6 cm; Wt 68.0 kg
--- NOTE | 2019-06-09 14:48 | NUR ---
Patient's vitals are stable. No signs of respiratory distress and sob. Patient is on 2L NC. Denies any pain. Patient was D/C to [facility] and re admitted to ARU for rehabilitation care.
[2019-06-09] MEDS ORDERED: MAGNESIUM HYDROXIDE 30 ML LIQUID UDC PO PRN (16:45)
[2019-06-09] MEDS ORDERED: ALBUTEROL SULFATE 2.5 MG/3 ML NEBU NEB PRN (16:45)
[2019-06-09] MEDS ORDERED: ZOLPIDEM 5 MG TABLET PO PRN (16:45)
[2019-06-09] MEDS ORDERED: IPRATROPIUM BROMIDE 0.5 MG/2.5 ML NEBU NEB PRN (16:45)
[2019-06-09] MEDS ORDERED: DEXTROSE 50% 50 ML DISP.SYRIN IV PRN ×2 (16:45→17:00)
[2019-06-09] MEDS ORDERED: Z GUARD REMEDY PASTE 57 GM TUBE TOP PRN (16:45)
[2019-06-09] MEDS: GLUCERNA SHAKE VANILLA 237 ML CAN PO SCH (17:34)
[2019-06-09] MEDS: AMLODIPINE 5 MG TABLET PO SCH (17:45)
[2019-06-09] MEDS ORDERED: BLOOD SUGAR DIAGNOSTIC 1 EACH STRIP VI ONE (17:45)
[2019-06-09] MEDS: INSULIN REGULAR, HUMAN 300 UNIT/3 ML VIAL SQ PRN ×2 (17:56→20:40)
--- NOTE | 2019-06-09 18:22 | NUR ---
Patient resting in bed, awake and alert. Vitals are stable, patient on 2L NC setting at 99%. Denies any SOB/ respiratory distress, denies any pain. Safety measures in place, bed in low position, call lights within reach. Will endorse to the oncoming furnace filler RN for the continuity of care.
[2019-06-09 20:11] VITALS: BP 130/51
[2019-06-09] MEDS: DEXAMETHASONE SOD PHOSPHATE 4 MG INJ IV SCH (20:34)
[2019-06-09] MEDS: CEFTRIAXONE 1 G in IV DEXTROSE 5% 50 ML IV SCH (20:34)
[2019-06-09] MEDS: levETIRAcetam 500 MG TABLET PO SCH (20:35)
[2019-06-09] MEDS: BLOOD SUGAR DIAGNOSTIC 1 EACH STRIP VI SCH (20:37)
[2019-06-09] MEDS: INSULIN GLARGINE,HUM 300 UNITS/3 ML CARTRIDGE SQ SCH (20:42)
[2019-06-09] MEDS: LOSARTAN POTASSIUM 25 MG TABLET PO SCH (21:08)
[2019-06-09] MEDS: AZITHROMYCIN IV 500 MG in IV DEXTROSE 5% 250 ML IV SCH (21:08)
[2019-06-09] MEDS ORDERED: AZITHROMYCIN 500 MG VIAL IV SCH (22:00)
--- NOTE | 2019-06-10 01:33 | NUR ---
awake alert and oriented x3-4 watching TV @ beginning of the shift. On O2 @ 2L via nasal cannula, pulse ox 98%. No respiratory distress noted. VSS. Kept comfortable. IV ABT's given as scheduled. No ill effects noted. Tolerated po meds well. Voiding freely in the urinal. OOB to bedside commode with moderate assist. BM noted this shift. Denies any pain nor any discomfort. Accucheck @ 2100 was 251, with coverage given. Will monitor patient. Needs attended. Call sims within reach. Siderails up for safety.
[2019-06-10 04:55] VITALS: BP 139/55
[2019-06-10] MEDS: BLOOD SUGAR DIAGNOSTIC 1 EACH STRIP VI SCH ×4 (06:34→21:17)
--- NOTE | 2019-06-10 06:38 | NUR ---
End of shift note: Quiet night. No acute distress noted. Denies any pain nor any discomfort. VSS. On continous O2 @ 2L via nasal cannula, pulse 0x 98%. Voiding well.
[2019-06-10 06:42] LABS: HEMATOCRIT 33.7 % (36.7-47.1); HEMOGLOBIN 10.9 g/dL (12.5-16.3); LYMPHOCYTES # (AUTO) 0.6 K/uL (20.0-40.0); LYMPHOCYTES % (AUTO) 4.3 % (20.5-51.5); MEAN CORPUSCULAR HEMOGLOBIN 26.1 uug (23.8-33.4); MEAN CORPUSCULAR HGB CONC 32 g/dL (32.5-36.3); MEAN CORPUSCULAR VOLUME 80.3 fL (73.0-96.2); MONOCYTES # (AUTO) 0.5 K/uL (2.0-10.0); MONOCYTES % (AUTO) 3.9 % (0.0-11.0); NEUTROPHILS # (AUTO) 12.9 K/uL (1.8-8.9); NEUTROPHILS % (AUTO) 91.8 % (38.5-71.5); PLATELET COUNT (AUTO) 298 K/uL (152-348)
[2019-06-10 07:41] LABS: BILIRUBIN,TOTAL 0.5 mg/dL (0.2-1.0); CREATININE 0.9 mg/dL (0.6-1.3); POTASSIUM 4.3 mmol/L (3.5-5.1); TOTAL PROTEIN, SERUM 6.5 g/dL (6.4-8.2)
--- NOTE | 2019-06-10 07:43 | NUR ---
Patient resting in bed, complaints of dull pain 3/10 patient reports of biopsy, no signs of distress noted, call light in reach, bed locked and in lowest position, all needs met at this time
[2019-06-10 08:00] VITALS: BP 139/60
[2019-06-10] MEDS: INSULIN REGULAR, HUMAN 300 UNIT/3 ML VIAL SQ PRN ×4 (08:15→21:21)
[2019-06-10] MEDS: ACETAMINOPHEN 325 MG TABLET PO PRN (08:21)
[2019-06-10] MEDS: FERROUS SULFATE 325 MG TABEC PO SCH ×2 (08:21→20:42)
[2019-06-10] MEDS: levETIRAcetam 500 MG TABLET PO SCH ×2 (08:21→20:42)
[2019-06-10] MEDS: PANTOPRAZOLE SODIUM 40 MG TABLET.DR PO SCH (08:21)
[2019-06-10] MEDS: DILTIAZEM HCL CD 120 MG CAP.SR.24H PO SCH (08:22)
[2019-06-10] MEDS: LOSARTAN POTASSIUM 25 MG TABLET PO SCH ×2 (08:23→20:42)
[2019-06-10] MEDS: GLUCERNA SHAKE VANILLA 237 ML CAN PO SCH ×2 (08:23→17:17)
[2019-06-10] MEDS: DEXAMETHASONE SOD PHOSPHATE 4 MG INJ IV SCH ×2 (08:23→20:41)
[2019-06-10] MEDS: AMLODIPINE 5 MG TABLET PO SCH ×2 (08:23→17:19)
[2019-06-10] MEDS: FLUTICASONE/VILANTEROL 1 EACH BLST.W.DEV IH SCH (08:24)
[2019-06-10 16:05] VITALS: BP 139/58
--- NOTE | 2019-06-10 19:17 | NUR ---
BM noted on this shift, all needs met, endorsement given to shift manager nurse
--- NOTE | 2019-06-10 19:51 | NUR ---
watching TV upon initial rounds. aaox3-4 In good spirits. VSS No acute distress noted. Will monitor patient. Denies any pain nor any discomfort. Due meds given as scheduled. Kept comfortable. Fall precautions maintained. Call sims within reach.
[2019-06-10 20:38] VITALS: BP 115/69
[2019-06-10] MEDS: CEFTRIAXONE 1 G in IV DEXTROSE 5% 50 ML IV SCH (20:41)
[2019-06-10] MEDS: INSULIN GLARGINE,HUM 300 UNITS/3 ML CARTRIDGE SQ SCH (21:22)
[2019-06-10] MEDS: AZITHROMYCIN IV 500 MG in IV DEXTROSE 5% 250 ML IV SCH (21:24)
[2019-06-11 05:34] VITALS: BP 132/57
[2019-06-11] MEDS: BLOOD SUGAR DIAGNOSTIC 1 EACH STRIP VI SCH ×4 (06:34→20:03)
--- NOTE | 2019-06-11 06:35 | NUR ---
End of shift note: Slept @ long intervals. Needs attended. No acute distress noted. No complaints presented during shift. Voided. No BM noted.
[2019-06-11] MEDS: levETIRAcetam 500 MG TABLET PO SCH ×2 (08:44→20:45)
[2019-06-11] MEDS: AMLODIPINE 5 MG TABLET PO SCH ×2 (08:44→16:37)
[2019-06-11] MEDS: FERROUS SULFATE 325 MG TABEC PO SCH ×2 (08:44→20:45)
[2019-06-11] MEDS: PANTOPRAZOLE SODIUM 40 MG TABLET.DR PO SCH (08:44)
[2019-06-11] MEDS: DEXAMETHASONE SOD PHOSPHATE 4 MG INJ IV SCH ×2 (08:45→20:47)
[2019-06-11] MEDS: DILTIAZEM HCL CD 120 MG CAP.SR.24H PO SCH (08:45)
[2019-06-11] MEDS: LOSARTAN POTASSIUM 25 MG TABLET PO SCH ×2 (08:45→20:46)
[2019-06-11] MEDS: FLUTICASONE/VILANTEROL 1 EACH BLST.W.DEV IH SCH (08:46)
[2019-06-11] MEDS: GLUCERNA SHAKE VANILLA 237 ML CAN PO SCH ×2 (08:50→16:36)
[2019-06-11] MEDS: INSULIN REGULAR, HUMAN 300 UNIT/3 ML VIAL SQ PRN ×3 (09:27→20:44)
[2019-06-11 12:32] VITALS: BP 123/52
[2019-06-11 15:11] VITALS: BP 128/50
[2019-06-11] MEDS: CEFTRIAXONE 1 G in IV DEXTROSE 5% 50 ML IV SCH (19:47)
[2019-06-11 20:27] VITALS: BP 119/43
[2019-06-11] MEDS: INSULIN GLARGINE,HUM 300 UNITS/3 ML CARTRIDGE SQ SCH (20:45)
[2019-06-11] MEDS: AZITHROMYCIN IV 500 MG in IV DEXTROSE 5% 250 ML IV SCH (21:07)
--- NOTE | 2019-06-11 21:36 | NUR ---
Received pt sleeping comfortably. Aroused easily to verbal stimuli. Alert and oriented x3-4. On 2L O2 via NC, no acute distress noted. Denies pain/ discomfort. IV on right hand, patent and intact. Due meds given as ordered. Accucheck 199, insulin coverage given as per sliding scale. Snack provided. Safety measures maintained. Call light and personal items within reach. Will continue to monitor.
[2019-06-12 04:00] VITALS: BP 133/44
[2019-06-12 06:01] LABS: BASOPHILS % (AUTO) 0.1 % (0.0-2.0); HEMATOCRIT 34.1 % (36.7-47.1); HEMOGLOBIN 10.9 g/dL (12.5-16.3); LYMPHOCYTES # (AUTO) 0.4 K/uL (20.0-40.0); LYMPHOCYTES % (AUTO) 2.5 % (20.5-51.5); MEAN CORPUSCULAR HEMOGLOBIN 25.8 uug (23.8-33.4); MEAN CORPUSCULAR HGB CONC 32 g/dL (32.5-36.3); MEAN CORPUSCULAR VOLUME 80.9 fL (73.0-96.2); MONOCYTES # (AUTO) 0.4 K/uL (2.0-10.0); MONOCYTES % (AUTO) 2.6 % (0.0-11.0); NEUTROPHILS # (AUTO) 13.7 K/uL (1.8-8.9); NEUTROPHILS % (AUTO) 94.8 % (38.5-71.5); PLATELET COUNT (AUTO) 254 K/uL (152-348); RED BLOOD CELL COUNT(AUTO) 4.21 MIL/uL (4.06-5.63); WHITE BLOOD COUNT (AUTO) 14.5 K/uL (3.6-10.2)
[2019-06-12 06:21] LABS: BILIRUBIN,TOTAL 0.4 mg/dL (0.2-1.0); CREATININE 0.9 mg/dL (0.6-1.3); MAGNESIUM 2.2 mg/dL (1.8-2.4); PHOSPHOROUS 3.8 mg/dL (2.5-4.9); POTASSIUM 5.2 mmol/L (3.5-5.1); TOTAL PROTEIN, SERUM 6.2 g/dL (6.4-8.2)
[2019-06-12] MEDS: BLOOD SUGAR DIAGNOSTIC 1 EACH STRIP VI SCH ×4 (06:37→21:05)
[2019-06-12 08:00] VITALS: BP 147/49
[2019-06-12] MEDS: FLUTICASONE/VILANTEROL 1 EACH BLST.W.DEV IH SCH (09:25)
[2019-06-12] MEDS: FERROUS SULFATE 325 MG TABEC PO SCH ×2 (09:25→20:51)
[2019-06-12] MEDS: DEXAMETHASONE SOD PHOSPHATE 4 MG INJ IV SCH ×2 (09:25→21:26)
[2019-06-12] MEDS: DILTIAZEM HCL CD 120 MG CAP.SR.24H PO SCH (09:25)
[2019-06-12] MEDS: LOSARTAN POTASSIUM 25 MG TABLET PO SCH ×2 (09:26→20:51)
[2019-06-12] MEDS: PANTOPRAZOLE SODIUM 40 MG TABLET.DR PO SCH (09:26)
[2019-06-12] MEDS: levETIRAcetam 500 MG TABLET PO SCH ×2 (09:26→20:51)
[2019-06-12] MEDS: GLUCERNA SHAKE VANILLA 237 ML CAN PO SCH ×2 (09:27→16:57)
[2019-06-12] MEDS: AMLODIPINE 5 MG TABLET PO SCH ×2 (09:27→16:56)
[2019-06-12] MEDS: INSULIN REGULAR, HUMAN 300 UNIT/3 ML VIAL SQ PRN ×3 (12:07→21:06)
--- NOTE | 2019-06-12 13:18 | NUR ---
INDIVIDUALIZED PLAN OF CARE
[2019-06-12 16:45] VITALS: BP 108/53
[2019-06-12] MEDS: HYDROCODONE/APAP 5-325MG TABLET PO PRN (17:15)
[2019-06-12 20:00] VITALS: BP 145/55
[2019-06-12] MEDS: CEFTRIAXONE 1 G in IV DEXTROSE 5% 50 ML IV SCH (20:50)
[2019-06-12] MEDS: INSULIN GLARGINE,HUM 300 UNITS/3 ML CARTRIDGE SQ SCH (21:05)
[2019-06-12] MEDS: AZITHROMYCIN IV 500 MG in IV DEXTROSE 5% 250 ML IV SCH (21:55)
[2019-06-12 22:22] VITALS: BP 145/55
--- NOTE | 2019-06-12 22:30 | NUR ---
RELAYED POTASSIUM AND SODIUM LEVEL TO DR ROSENBAUM WITH ORDER FOR CBC AND BMP TOMORROW.
--- NOTE | 2019-06-12 22:30 | NUR ---
RECEIVED PATIENT IN BED, ALERT AND VERBALLY RESPONSIVE. AFEBRILE. NO RESPIRATORY DISTRESS. ON 2L/MIN VIA NC, TOLERATED WELL, O2 SAT 98%. RESPIRATIONS EVEN AND UNLABORED. NO COMPLAINTS OF PAIN NOTED. PATIENT RECEIVED IV ATB THERAPY CEFTRIAXONE AND AZITHROMYCIN PER MD ORDER. TOLERATED WELL. NO ASE D/T ATB OBSERVED. BLOOD SUGAR CHECKED AND WAS 274. COVERAGE ADMINISTERED ORDERED. WILL CONTINUE TO MONITOR PATIENT AND KEEP CLEAN, WARM, AND DRY. ALL NEEDS ATTENDED. WILL CONTINUE TO OBSERVE FALL AND SAFETY PRECAUTIONS.
[2019-06-13 05:00] VITALS: BP 143/60
--- NOTE | 2019-06-13 05:31 | NUR ---
PATIENT ASLEEP AT THIS TIME, HAD INTERMITTENT SLEEP TO URINATE WITH URINAL. ABLE TO FALL BACK ASLEEP WITH NO DIFFICULTY. CONTINUES TO BE ON 2L/MIN OF O2 VIA NC. TOLERATED WELL. NO BM NOTED DURING SHIFT. ALL NEEDS ANTICIPATED AND ATTENDED. FALL AND SAFETY PRECAUTIONS OBSERVED.
[2019-06-13 06:09] LABS: BASOPHILS % (AUTO) 0.1 % (0.0-2.0); HEMATOCRIT 36.5 % (36.7-47.1); HEMOGLOBIN 11.7 g/dL (12.5-16.3); LYMPHOCYTES # (AUTO) 0.4 K/uL (20.0-40.0); MEAN CORPUSCULAR HEMOGLOBIN 26.2 uug (23.8-33.4); MEAN CORPUSCULAR HGB CONC 32 g/dL (32.5-36.3); MEAN CORPUSCULAR VOLUME 81.3 fL (73.0-96.2); MONOCYTES # (AUTO) 0.3 K/uL (2.0-10.0); MONOCYTES % (AUTO) 1.5 % (0.0-11.0); NEUTROPHILS # (AUTO) 17.6 K/uL (1.8-8.9); NEUTROPHILS % (AUTO) 96.4 % (38.5-71.5); PLATELET COUNT (AUTO) 235 K/uL (152-348); RED BLOOD CELL COUNT(AUTO) 4.48 MIL/uL (4.06-5.63); WHITE BLOOD COUNT (AUTO) 18.3 K/uL (3.6-10.2)
[2019-06-13 06:15] LABS: CREATININE 0.8 mg/dL (0.6-1.3); POTASSIUM 5.1 mmol/L (3.5-5.1)
[2019-06-13] MEDS: BLOOD SUGAR DIAGNOSTIC 1 EACH STRIP VI SCH ×4 (06:47→20:42)
[2019-06-13] MEDS: GLUCERNA SHAKE VANILLA 237 ML CAN PO SCH ×2 (08:25→17:07)
[2019-06-13] MEDS: DEXAMETHASONE SOD PHOSPHATE 4 MG INJ IV SCH ×2 (08:26→20:32)
[2019-06-13] MEDS: FLUTICASONE/VILANTEROL 1 EACH BLST.W.DEV IH SCH (08:26)
[2019-06-13] MEDS: FERROUS SULFATE 325 MG TABEC PO SCH ×2 (08:27→20:32)
[2019-06-13] MEDS: PANTOPRAZOLE SODIUM 40 MG TABLET.DR PO SCH (08:27)
[2019-06-13] MEDS: levETIRAcetam 500 MG TABLET PO SCH ×2 (08:27→20:32)
[2019-06-13] MEDS: AMLODIPINE 5 MG TABLET PO SCH ×2 (08:46→17:04)
[2019-06-13] MEDS: DILTIAZEM HCL CD 120 MG CAP.SR.24H PO SCH (08:46)
[2019-06-13] MEDS: INSULIN REGULAR, HUMAN 300 UNIT/3 ML VIAL SQ PRN ×4 (08:49→20:46)
[2019-06-13] MEDS: LOSARTAN POTASSIUM 25 MG TABLET PO SCH ×2 (10:09→20:34)
[2019-06-13] MEDS ORDERED: MAGNESIUM HYDROXIDE 30 ML LIQUID UDC PO PRN (10:45)
[2019-06-13] MEDS ORDERED: BISACODYL 10 MG SUPP.RECT RC PRN (10:45)
--- NOTE | 2019-06-13 10:46 | NUR ---
Social Work Note/PH9 Post Stroke Depression Screening: abatement worker met with patient and conducted a PHQ-9 (Post Stroke Depression Screening) in which the patient score of a level of 1 for depression. Patient does not require a psychiatric consult at this time.
[2019-06-13 12:00] VITALS: BP 145/60
[2019-06-13] MEDS ORDERED: ALBUTEROL SULFATE 1.25 MG/3 ML NEBU NEB SCH (13:30)
[2019-06-13] MEDS ORDERED: LEVALBUTEROL HCL NEB 0.63 MG/3 ML NEBU NEB SCH (13:30)
[2019-06-13] MEDS: CLOTRIMAZOLE 10 MG TROCHE MM SCH ×3 (14:09→20:32)
[2019-06-13] MEDS: IPRATROPIUM BROMIDE 0.5 MG/2.5 ML NEBU NEB SCH ×2 (14:20→19:41)
[2019-06-13] MEDS ORDERED: LEVALBUTEROL HCL NEB 0.63 MG/3 ML NEBU NEB PRN (14:30)
--- NOTE | 2019-06-13 18:22 | NUR ---
Patient remains alert, oriented x 3, not in any form of distress. He denies any pain at this time. Patient seen and examined during the shift by Wanda Reese DIETICIAN, DIETICIAN made aware that patient stated current inhaler use doesn't work for him. Per DIETICIAN will check his medications. Patient participated with PT and OT during the shift. Patient complained of constipation, given PRN MOM. Will continue to monitor and will endorse accordingly to vending machine repairer nurse.
--- NOTE | 2019-06-13 19:30 | NUR ---
Awake, in bed, watching [employer] at this time. Denies any pain/discomforts at thsi time. No s/s of respiratory distress. Continuos O2 at 2L via NC, saturating 98% at this time. HOB elevated. Left FA HL intact and patent. No s/s of infiltration noted. Urinated via urinal with tonya colored urine output. Safety measures and fall precaution maintained. Continue care as planned.
[2019-06-13] MEDS: LEVALBUTEROL HCL NEB 0.63 MG/3 ML NEBU NEB SCH (19:41)
[2019-06-13] MEDS: CEFTRIAXONE 1 G in IV DEXTROSE 5% 50 ML IV SCH (20:23)
[2019-06-13] MEDS: INSULIN GLARGINE,HUM 300 UNITS/3 ML CARTRIDGE SQ SCH (20:44)
[2019-06-13] MEDS: AZITHROMYCIN IV 500 MG in IV DEXTROSE 5% 250 ML IV SCH (21:49)
[2019-06-14] MEDS: LEVALBUTEROL HCL NEB 0.63 MG/3 ML NEBU NEB SCH ×2 (00:30→08:30)
[2019-06-14] MEDS: IPRATROPIUM BROMIDE 0.5 MG/2.5 ML NEBU NEB SCH ×4 (00:30→18:49)
[2019-06-14] MEDS: HYDROCODONE/APAP 5-325MG TABLET PO PRN (04:17)
[2019-06-14 05:00] VITALS: BP 116/52
[2019-06-14] MEDS: BLOOD SUGAR DIAGNOSTIC 1 EACH STRIP VI SCH ×4 (05:57→21:07)
--- NOTE | 2019-06-14 06:04 | NUR ---
Shift End Report: VS stable. Medicated once for dull ache like chest pain in scale of 6/10 with relief. No further complaint presented. No s/s of hypo/hyperglycemia. No s/s of adverse reaction noted from antibiotics. HL on RFA intact and patent. No s/s of infiltration. Voided well per urinal. All needs attended and met. Slept good. No significant event reported all night. Continue current rehab plan of care.
[2019-06-14 06:17] LABS: BASOPHILS % (AUTO) 0.1 % (0.0-2.0); HEMATOCRIT 33.9 % (36.7-47.1); HEMOGLOBIN 11.1 g/dL (12.5-16.3); LYMPHOCYTES # (AUTO) 0.3 K/uL (20.0-40.0); LYMPHOCYTES % (AUTO) 1.1 % (20.5-51.5); MEAN CORPUSCULAR HEMOGLOBIN 26.5 uug (23.8-33.4); MEAN CORPUSCULAR HGB CONC 33 g/dL (32.5-36.3); MEAN CORPUSCULAR VOLUME 81.2 fL (73.0-96.2); MONOCYTES # (AUTO) 0.4 K/uL (2.0-10.0); MONOCYTES % (AUTO) 1.6 % (0.0-11.0); NEUTROPHILS # (AUTO) 25.3 K/uL (1.8-8.9); NEUTROPHILS % (AUTO) 97.2 % (38.5-71.5); PLATELET COUNT (AUTO) 204 K/uL (152-348); RED BLOOD CELL COUNT(AUTO) 4.18 MIL/uL (4.06-5.63)
[2019-06-14 06:27] LABS: CREATININE 0.8 mg/dL (0.6-1.3); MAGNESIUM 2.2 mg/dL (1.8-2.4); PHOSPHOROUS 3.3 mg/dL (2.5-4.9); POTASSIUM 4.7 mmol/L (3.5-5.1)
[2019-06-14 07:30] VITALS: BP 129/47
[2019-06-14] MEDS: PANTOPRAZOLE SODIUM 40 MG TABLET.DR PO SCH (08:06)
[2019-06-14] MEDS: INSULIN REGULAR, HUMAN 300 UNIT/3 ML VIAL SQ PRN ×4 (08:09→21:08)
[2019-06-14] MEDS: FERROUS SULFATE 325 MG TABEC PO SCH ×2 (08:11→21:02)
[2019-06-14] MEDS: levETIRAcetam 500 MG TABLET PO SCH ×2 (08:11→21:03)
[2019-06-14] MEDS: DILTIAZEM HCL CD 120 MG CAP.SR.24H PO SCH (08:11)
[2019-06-14] MEDS: CLOTRIMAZOLE 10 MG TROCHE MM SCH ×4 (08:11→21:05)
[2019-06-14] MEDS: DEXAMETHASONE SOD PHOSPHATE 4 MG INJ IV SCH ×2 (08:13→21:06)
[2019-06-14] MEDS: GLUCERNA SHAKE VANILLA 237 ML CAN PO SCH ×2 (08:21→17:33)
[2019-06-14] MEDS: FLUTICASONE/VILANTEROL 1 EACH BLST.W.DEV IH SCH (09:44)
[2019-06-14] MEDS: LOSARTAN POTASSIUM 25 MG TABLET PO SCH ×2 (09:55→21:02)
[2019-06-14] MEDS: AMLODIPINE 5 MG TABLET PO SCH ×2 (09:55→17:09)
[2019-06-14] MEDS ORDERED: ALBUTEROL SULFATE 1.25 MG/3 ML NEBU NEB PRN (10:45)
[2019-06-14 12:12] LABS: *BILIRUBIN,URIN NEGATIVE (NEGATIVE); *BLOOD, URINE NEGATIVE (NEGATIVE); *CLARITY,URINE CLEAR (CLEAR); *COLOR,URINE YELLOW (YELLOW); *KETONES,URINE NEGATIVE (NEGATIVE); *UROBILINOGEN,URINE 0.2 E.U./dl (NORMAL); LEUKOCYTE ESTERASE ,URINE NEGATIVE (NEGATIVE); NITRITE, URINE NEGATIVE (NEGATIVE); PH,URINE 5.5 (5.0-8.0); UGLUCOSE TRACE (NEGATIVE)
[2019-06-14 12:20] LABS: BACTERIA,URINE NONE SEEN /HPF (NONE SEEN); RBC,URINE 0-3 /HPF (0-3); SQUAMOUS EPITHELIAL CELL,UR MODERATE /HPF (NONE SEEN)
[2019-06-14 12:21] LABS: URINE AMORPHOUS URATE MODERATE /HPF
[2019-06-14] MEDS: ALBUTEROL SULFATE 1.25 MG/3 ML NEBU NEB SCH ×2 (13:21→18:50)
[2019-06-14 16:00] VITALS: BP 125/57
--- NOTE | 2019-06-14 18:41 | NUR ---
Patient remains alert, oriented x 4 during the shift. All due medications administered and tolerated well. No complain of any pain or discomfort at this time. No acute distress noted, on room air. Assisted patient to the toilet for bowel movement then back to bed. Patient seen by Wanda DAY during the shift, informed CASE MANAGER SPECIALIST regarding episode of productive cough. Per CASE MANAGER SPECIALIST patient is already on antibiotic and hemodialysis charge nurse already made changes with his medications. Also CASE MANAGER SPECIALIST made aware regarding abnormal lab results today and per CASE MANAGER SPECIALIST new orders already in place. Patient participated with PT and OT. Safety measures maintained. Call light and frequently used items placed within patient's reach.
[2019-06-14] MEDS ORDERED: AZITHROMYCIN IV 500 MG in IV DEXTROSE 5% 250 ML IV SCH (20:00)
[2019-06-14] MEDS ORDERED: LEVALBUTEROL HCL NEB 0.63 MG/3 ML NEBU NEB PRN (20:45)
[2019-06-14 20:57] VITALS: BP 128/51
[2019-06-14] MEDS: DOCUSATE SODIUM 100 MG/10 ML LIQUID UDC PO SCH (21:03)
[2019-06-14] MEDS: INSULIN GLARGINE,HUM 300 UNITS/3 ML CARTRIDGE SQ SCH (21:09)
[2019-06-14] MEDS ORDERED: CEFEPIME HCL 1 G in IV DEXTROSE 5% 50 ML IV SCH (22:00)
[2019-06-14] MEDS ORDERED: CEFEPIME HCL 1 G VIAL ONE (22:22)
--- NOTE | 2019-06-14 23:31 | NUR ---
awake upon initial rounds. AAOx3-4 forgetful at times. No acute distress noted. On continous O2@2L via nasal cannula, pulse ox 99%. Needs attended. VSS Due meds given as scheduled. Accucheck 276 with 6 units humalog given as coverage. Lantus 15 units also given as scheduled. On Fluid restrictions, 900 ml/24hrs. Patient compliant. Fall precautions maintained. Siderails up for safety. Uses urinal when voiding. BM this shift. Kept comfortable. IV ABT given as ordered with no side effects noted. Will monitor patient.
[2019-06-15 00:57] VITALS: BP 116/46
[2019-06-15] MEDS: IPRATROPIUM BROMIDE 0.5 MG/2.5 ML NEBU NEB SCH ×3 (00:58→14:06)
[2019-06-15] MEDS: LEVALBUTEROL HCL NEB 0.63 MG/3 ML NEBU NEB SCH ×3 (00:58→14:06)
[2019-06-15 03:46] VITALS: BP 127/57
[2019-06-15 05:55] LABS: BASOPHILS # (AUTO) 0.1 K/uL (0.0-8.0); BASOPHILS % (AUTO) 0.3 % (0.0-2.0); HEMATOCRIT 38.5 % (36.7-47.1); HEMOGLOBIN 12.4 g/dL (12.5-16.3); LYMPHOCYTES # (AUTO) 0.3 K/uL (20.0-40.0); LYMPHOCYTES % (AUTO) 0.7 % (20.5-51.5); MEAN CORPUSCULAR HEMOGLOBIN 26.4 uug (23.8-33.4); MEAN CORPUSCULAR HGB CONC 32 g/dL (32.5-36.3); MEAN CORPUSCULAR VOLUME 82.2 fL (73.0-96.2); MONOCYTES # (AUTO) 0.7 K/uL (2.0-10.0); MONOCYTES % (AUTO) 1.8 % (0.0-11.0); NEUTROPHILS # (AUTO) 36.8 K/uL (1.8-8.9); NEUTROPHILS % (AUTO) 97.2 % (38.5-71.5); PLATELET COUNT (AUTO) 242 K/uL (152-348); RED BLOOD CELL COUNT(AUTO) 4.68 MIL/uL (4.06-5.63)
[2019-06-15] MEDS: PANTOPRAZOLE SODIUM 40 MG TABLET.DR PO SCH (06:35)
[2019-06-15] MEDS: BLOOD SUGAR DIAGNOSTIC 1 EACH STRIP VI SCH ×3 (06:37→17:26)
[2019-06-15 06:47] LABS: CREATININE 1.2 mg/dL (0.6-1.3); MAGNESIUM 2.2 mg/dL (1.8-2.4); PHOSPHOROUS 3.7 mg/dL (2.5-4.9); POTASSIUM 4.6 mmol/L (3.5-5.1)
[2019-06-15 06:49] LABS: WHITE BLOOD COUNT (AUTO) 37.8 K/uL (3.6-10.2)
[2019-06-15] MEDS ORDERED: PANTOPRAZOLE SODIUM 40 MG TABLET.DR PO SCH (07:00)
[2019-06-15 08:00] VITALS: BP 132/51
[2019-06-15] MEDS: GLUCERNA SHAKE VANILLA 237 ML CAN PO SCH ×2 (08:00→17:00)
[2019-06-15 08:11] LABS: BAND % (MANUAL) 3 % (0-10); LYMPHOCYTES % (MANUAL) 1 % (20-40); MONOCYTES % (MANUAL) 4 % (2-10); NEUTROPHILS % (MANUAL) 92 % (42-75)
[2019-06-15] MEDS: FERROUS SULFATE 325 MG TABEC PO SCH (08:52)
[2019-06-15] MEDS: DOCUSATE SODIUM 100 MG/10 ML LIQUID UDC PO SCH (08:52)
[2019-06-15] MEDS: levETIRAcetam 500 MG TABLET PO SCH (08:52)
[2019-06-15] MEDS: LOSARTAN POTASSIUM 25 MG TABLET PO SCH (08:52)
[2019-06-15] MEDS: DILTIAZEM HCL CD 120 MG CAP.SR.24H PO SCH (08:53)
[2019-06-15] MEDS ORDERED: MUPIROCIN 2% OINT 22 GM TUBE NS SCH (09:00)
[2019-06-15] MEDS: DEXAMETHASONE SOD PHOSPHATE 4 MG INJ IV SCH (09:03)
[2019-06-15] MEDS: FLUTICASONE/VILANTEROL 1 EACH BLST.W.DEV IH SCH (09:03)
[2019-06-15] MEDS: CLOTRIMAZOLE 10 MG TROCHE MM SCH ×3 (09:04→17:38)
[2019-06-15] MEDS: AMLODIPINE 5 MG TABLET PO SCH ×2 (09:04→17:00)
[2019-06-15] MEDS ORDERED: CEFEPIME HCL 1 G in IV DEXTROSE 5% 50 ML IV SCH ×2 (09:10→09:30)
--- NOTE | 2019-06-15 11:12 | NUR ---
Received patient awake in bed. Alert and oriented x3 in stable condition. Continue on oxygen via nasal cannula ar 2LPM. SPO2-94%. Patient WBC 37.8. PIPE FITTER FIRE SPRINKLER SYSTEMS Wanda aware. Started Cefepime IV for PNA and increase WBC. Patient verbalize he wants to go home, PIPE FITTER FIRE SPRINKLER SYSTEMS aware. explain to patient reason for stay in the hospital with good effect. Patient seen and examined by MD Sloan. no new order. Patient continue on breathing treatment for SOB/COPD. Patient continue accucheck with sliding scale protocol. tolerated well. Continue fluid restriction 900 cc per day for. Patient refuse therapy today. PIPE FITTER FIRE SPRINKLER SYSTEMS Wanda aware, agree to advice to lessen therapy activities. will continue monitor
[2019-06-15] MEDS: INSULIN REGULAR, HUMAN 300 UNIT/3 ML VIAL SQ PRN ×2 (11:38→17:37)
[2019-06-15 16:00] VITALS: BP 98/52
[2019-06-15] MEDS: ACETAMINOPHEN 325 MG TABLET PO PRN (16:18)
--- NOTE | 2019-06-15 16:24 | NUR ---
Patient temperature- 100' F relayed to MD Sloan. Tylenol 650mg given. Ice pack given to underarm. no complaint of SOB/discomfort. no new order. will continue monitor
[2019-06-15 17:00] VITALS: BP 98/52
--- NOTE | 2019-06-15 17:45 | NUR ---
Patient will transfer to [facility] for continuity of care and observation. Rehab MD sanz. SHAY Muñoz and MD Sloan notified. MD Sloan agree for covid testing. will endorse to RN Addendum: 06/15/19 at 1809 by ANTHONY DOWNEY RN RN As per Wanda, DX will be sepsis
[2019-06-15] MEDS ORDERED: DEXAMETHASONE SOD PHOSPHATE 4 MG INJ IV SCH (21:00)
== END 2019-06-15 18:29 | disposition short-term general hospital (02) | DRG 58 ==
PROVIDERS: ADMIT Physical Medicine & Rehabilitation Pain Medicine; ATTEND Physical Medicine & Rehabilitation Pain Medicine
DX: I69.198 Other sequelae of nontraumatic intracerebral hemorrhage (principal); A41.9 Sepsis, unspecified organism; G92 Toxic encephalopathy; G93.6 Cerebral edema; E22.2 Syndrome of inappropriate secretion of antidiuretic hormone; C79.31 Secondary malignant neoplasm of brain; C79.89 Secondary malignant neoplasm of other specified sites; I11.0 Hypertensive heart disease with heart failure; E44.0 Moderate protein-calorie malnutrition; D68.59 Other primary thrombophilia; E11.65 Type 2 diabetes mellitus with hyperglycemia; I50.32 Chronic diastolic (congestive) heart failure; D50.0 Iron deficiency anemia secondary to blood loss (chronic); K43.9 Ventral hernia without obstruction or gangrene; Z85.038 Personal history of other malignant neoplasm of large intestine; Z92.21 Personal history of antineoplastic chemotherapy; I25.10 Atherosclerotic heart disease of native coronary artery without angina pectoris; R19.5 Other fecal abnormalities; E78.5 Hyperlipidemia, unspecified; E87.5 Hyperkalemia; G31.84 Mild cognitive impairment of uncertain or unknown etiology; I48.91 Unspecified atrial fibrillation; I70.0 Atherosclerosis of aorta; J18.9 Pneumonia, unspecified organism; C34.11 Malignant neoplasm of upper lobe, right bronchus or lung; J44.0 Chronic obstructive pulmonary disease with (acute) lower respiratory infection; K59.00 Constipation, unspecified; Z66 Do not resuscitate; Z85.6 Personal history of leukemia; Z87.891 Personal history of nicotine dependence; Z90.49 Acquired absence of other specified parts of digestive tract
CPT/HCPCS: 36415; 70030-TC; 71045; 83550; 83735; 84100; 85025; 87040; 87086; 88342; 94640; A4217; J0456; J0692; J0696; J1100; J1815; J3590; J7030; J7060; J7614

== ENCOUNTER 2019-06-15 18:40 | Inpatient (IN) | payer MEDICAID ==
[~2019-06-15 18:40] MED LIST: ACET325T53 PO; ALBU2.5V7 NEB; AMLO5TAB9 PO; AZIT500V8 IV; Blood Sugar Diagnostic VI; CEFT1VIA15 IV; DEXA4VIA17 IV; DEXT50DI8 IV; DILT120C87 PO; FLUT1BLS IH; HYDR-3972 PO; INSU100V28 SQ; IPRA0.2S6 NEB; Insulin Glargine,Hum SQ; LEVE500T9 PO; LOSA25TA3 PO; MAGN400O6 PO; MENT71OI TOP; NUT.237L28 PO; PANT40TA4 PO; ZOLP5TAB8 PO
--- NOTE | 2019-06-15 19:51 | NUR ---
FAMILY DANIELVERY WISHES TO DISCHARGE THE PATIENT HOME WITH HOME HEALTH. NOTIFY DR BUSH WITH ORDER.
--- NOTE | 2019-06-15 20:10 | NUR ---
PHARMACY CLINICAL NOTES; VANCOMYCIN DOSING S: 73 YO male with DX of possible sepsis of unknow origin, MD ordered Vancomycin and pt is on Cefepime O: BUN/SCR 34/1.2; WBC 37.8. TEMP 100, DOSING WT 150 LBS A/P: Will dose Vanco as 1250 mg q22h , estimated peak is 40 and trough is 16, plan to monitor trough prior to 4th dose of Vanco (not ordered yet). Will continue to monitor renal fxn and levels and make the necessary adjustments if needed.
[2019-06-15] MEDS ORDERED: VANCOMYCIN IV 1,250 MG in IV DEXTROSE 5% 250 ML IV SCH (21:00)
[2019-06-15] MEDS ORDERED: CEFEPIME HCL 1 G in IV DEXTROSE 5% 50 ML IV SCH (21:30)
--- NOTE | 2019-06-15 21:40 | NUR ---
NOTIFY DR. GLORY BUSH TO DISCHARGE PATIENT AND FAMILY NEEDS PRESCRIPTIONS, DR. BUSH SAID HE WILL FINISHED THE DISCHARGE TOMORROW. PATIENT WAS PICKED UP BY FAMILY AND FAMILY WAS NOTIFIED REGARDING THE DISCHARGE PAPERS. FAMILY WAS GIVEN COPIES OF LAB WORKS DONE AND ALL IMAGING DONE FOR THE PATIENT, INSTRUCTED FAMILY IF THEY CAN DOG SITTER THE PAPER WORKS TOMORROW. INSTRUCTED FAMILY THAT PATIENT NEEDS OXYGEN FOR ASSIST WHEN THEY GET HOME.
--- NOTE | 2019-06-15 21:47 | NUR ---
PATIENT WAS ASKED IF HE HAVE OXYGEN MACHINE AT HOME, AND SAID YES.
--- NOTE | 2019-06-27 16:59 | NUR ---
Update: Spoke with MO from [facility] earlier today and informed him that this patient had been referred to [facility]. Per MO: he will follow up with Chio to confirm that [facility] is providing services. 1424pm-Per Chio: she was unable to obtain authorization from [facility] after several attempts however, she will follow up with authorization today. 1647pm-Rashel Barroso: she was able to reach the showcase maker from [facility] and follow up with the showcase maker Zofia @ [phone] who stated that the patient has been admitted to [facility].
== END 2019-06-15 21:45 | disposition home health service (06) | DRG 720 ==
LOC: MEDSURG3 18:40
DX: A41.9 Sepsis, unspecified organism (principal); J18.9 Pneumonia, unspecified organism; J44.9 Chronic obstructive pulmonary disease, unspecified; E22.2 Syndrome of inappropriate secretion of antidiuretic hormone; E11.9 Type 2 diabetes mellitus without complications; R91.8 Other nonspecific abnormal finding of lung field; Z85.038 Personal history of other malignant neoplasm of large intestine; Z85.6 Personal history of leukemia; I10 Essential (primary) hypertension; I25.10 Atherosclerotic heart disease of native coronary artery without angina pectoris
CPT/HCPCS: 94640; A4663; G0378; J0692; J7060